=== PATIENT | female | born 1970 | race Caucasian/White ===

== ENCOUNTER 2017-03-07 09:51 | Emergency (ER) | payer SELFPAY ==
[2017-03-07 11:02] LABS: BASOPHILS 0.2 % (0-2); HEMOGLOBIN 14.3 g/dL (12-16); IMMATURE GRANULOCYTES 0.3 % (0-5); LYMPHOCYTES 29.3 % (15-50); MCH 32.3 pg (26.0-34.0); MCHC 33.3 g/dL (31.0-37.0); MCV 97.1 fL (80.0-100.0); MEAN PLATELET VOLUME 8.8 fL (7.4-10.4); MONOCYTES 5.8 % (2-11); NEUTROPHILS 62.4 % (40-80); RBC 4.43 10x6/uL (4.00-5.40); RDW 12.7 % (11.5-14.5); WBC 6.1 10x3/uL (4.8-10.8)
[2017-03-07 11:05] LABS: PLATELET COUNT 218 10x3/uL (130-400)
[2017-03-07 11:40] LABS: CALC OSMOLALITY 275 mosm/kg (275-300); CARBON DIOXIDE 24.6 mmol/L (21.0-32.0); CHLORIDE - SERUM 105 mmol/L (98-107); CREATININE - SERUM 0.6 mg/dL (0.6-1.3); GLUCOSE 123 mg/dL (74-106); POTASSIUM - SERUM 3.9 mmol/L (3.5-5.1); SODIUM 138 mmol/L (136-145); TROPONIN-I 0.019 ng/mL (0.000-0.060); UREA NITROGEN 11 mg/dL (7-18); eGFR NON AFRICAN AMERICAN > 90 mL/min (90-120)
== END 2017-03-07 12:35 | disposition home or self-care (01) ==
LOC: D.ER 09:51
PROVIDERS: Nurse Practitioner Acute Care
DX: M54.12 Radiculopathy, cervical region (principal); M48.02 Spinal stenosis, cervical region; F17.200 Nicotine dependence, unspecified, uncomplicated

== ENCOUNTER → 2017-03-14 22:28 | Emergency (ER) | payer SELFPAY | END | disposition home or self-care (01) | LOC: D.ER 22:28 | DX: M54.12 Radiculopathy, cervical region (principal); M41.9 Scoliosis, unspecified; F17.200 Nicotine dependence, unspecified, uncomplicated ==

== ENCOUNTER → 2018-04-04 10:30 | Outpatient (CLI) | payer OTHER | END | disposition home or self-care (01) | LOC: D.RT 10:00 | DX: Z02.71 Encounter for disability determination (principal) ==

== ENCOUNTER → 2019-01-03 14:04 | Outpatient (CLI) | payer OTHER | END | disposition home or self-care (01) | LOC: D.RT 14:00 | PROVIDERS: ATTEND Pediatrics | DX: Z02.71 Encounter for disability determination (principal) ==

== ENCOUNTER 2021-03-03 16:18 | Emergency (ER) | payer OTHER ==
[~2021-03-03] VITALS: Ht 157.5 cm; Wt 77.3 kg
[2021-03-03 16:34] VITALS: Ht 157.5 cm; Wt 77.3 kg
[2021-03-03 17:12] LABS: BASOPHILS 0.2 % (0-2); EOSINOPHILS 3.3 % (0-7); HEMATOCRIT 38.8 % (36.0-48.0); LYMPHOCYTES 34.9 % (15-50); MCH 30.1 pg (26.0-34.0); MCHC 33.4 g/dL (31.0-37.0); MCV 90.1 fL (80.0-100.0); MEAN PLATELET VOLUME 6.4 fL (7.4-10.4); MONOCYTES 5.1 % (2-11); NEUTROPHILS 56.5 % (40-80); RDW 12.9 % (11.5-14.5); WBC 6.5 10x3/uL (4.8-10.8)
[2021-03-03 17:13] LABS: PLATELET COUNT 267 10x3/uL (130-400)
[2021-03-03 17:17] LABS: CALC OSMOLALITY 283 mosm/kg (275-300); CALCIUM 8.8 mg/dL (8.5-10.1); CARBON DIOXIDE 26.6 mmol/L (21.0-32.0); CHLORIDE - SERUM 105 mmol/L (98-107); CREATININE - SERUM 0.8 mg/dL (0.6-1.3); GLUCOSE 130 mg/dL (74-106); POTASSIUM - SERUM 3.8 mmol/L (3.5-5.1); SODIUM 141 mmol/L (136-145); UREA NITROGEN 16 mg/dL (7-18); eGFR NON AFRICAN AMERICAN 80 mL/min (90-120)
[2021-03-03 17:30] LABS: ALBUMIN 3.6 g/dL (3.4-5.0); ALKALINE PHOSPHATASE 107 U/L (30-120); ALT (SGPT) 27 U/L (10-68); BILIRUBIN - TOTAL 0.31 mg/dL (0.2-1.3); PRO BNP 594 pg/mL (0-125); PROTEIN - SERUM 7.7 g/dL (6.4-8.2)
[2021-03-03 22:02] LABS: BILIRUBIN NEGATIVE (NEGATIVE); KETONE NEGATIVE mg/dL (< 1+); NITRITE NEGATIVE (NEGATIVE); PH 5.5 (5.0-8.0); UROBILINOGEN NORMAL mg/dL (< 2)
[2021-03-03 22:20] LABS: BACTERIA FEW HPF (<MOD); SQUAMOUS EPITHELIAL 6 HPF (0-4); WHITE CELLS - URINE 94 HPF (0-4)
[2021-03-04 02:42] LABS: UDS - AMPHET POSITIVE QUAL (NEGATIVE); UDS - BARB NEGATIVE QUAL (NEGATIVE); UDS - BENZO NEGATIVE QUAL (NEGATIVE); UDS - COCAINE NEGATIVE QUAL (NEGATIVE); UDS - OPIATE NEGATIVE QUAL (NEGATIVE); UDS - PCP NEGATIVE QUAL (NEGATIVE); UDS - THC NEGATIVE QUAL (NEGATIVE)
[2021-03-04 04:30] VITALS: BP 161/98
== END 2021-03-04 04:30 | disposition short-term general hospital (02) ==
LOC: D.ER 16:18
PROVIDERS: Family Medicine
DX: I50.9 Heart failure, unspecified (principal); R10.9 Unspecified abdominal pain; J84.10 Pulmonary fibrosis, unspecified; N20.1 Calculus of ureter; N39.0 Urinary tract infection, site not specified; I25.2 Old myocardial infarction; J44.9 Chronic obstructive pulmonary disease, unspecified; I20.9 Angina pectoris, unspecified